=== PATIENT | male | born 1955 | race Caucasian/White ===

== ENCOUNTER 2017-01-31 16:19 | Emergency (ER) | payer BC ==
[~2017-01-31 16:19] MED LIST: FLOMAX4 PO; GLUCPH PO; MULTIPLE VIT PO; Z100 PO; Z300 PO; ZESTORETIC1 TAB PO
[2017-02-01] MEDS ORDERED: LIDODERM TOP (20:55)
[2017-02-01] MEDS ORDERED: MOBIC7.5 PO (20:55)
[2017-02-01] MEDS ORDERED: GLUCOPHXR PO (20:57)
[2017-02-01] MEDS ORDERED: NORCO1 TA1 PO (20:57)
[2017-02-01] MEDS ORDERED: FLEX PO (20:58)
[2017-02-01] MEDS ORDERED: HALF81 PO (20:59)
[2017-02-01] MEDS ORDERED: Z300 PO (20:59)
[2017-02-01] MEDS ORDERED: PRIN20 PO (21:00)
[2017-02-01] MEDS ORDERED: LIPITOR (21:02)
== END 2017-01-31 18:15 | disposition home or self-care (01) ==
LOC: ER 16:19
DX: M54.41 Lumbago with sciatica, right side (principal); I10 Essential (primary) hypertension; E11.9 Type 2 diabetes mellitus without complications; Z79.899 Other long term (current) drug therapy
CPT/HCPCS: 82962; 96372; 99283; J1170; J1885; J2405

== ENCOUNTER 2017-02-01 20:50 | Inpatient (IN) | payer BC ==
--- NOTE | ~2017-02-01 | HP ---
History And Physical [place] [address] [place]. [address] NAME: DAREN COX : 59 STATUS : ADM IN [facility]#: [id number] AGE: 61 ADM/REG DATE : 02/02/17 MR#: [id number] REPORT SERV DATE: 02/02/17 DICTATED BY: BRANDI LEY DATE: 02/02/17 REPORT STATUS : Draft TRANSCRIBED BY: MODL DATE: 02/02/17 DATE OF ADMISSION: 02/02/2017 CHIEF COMPLAINT: A 61-year-old male presenting with high fevers and back pain. HISTORY OF PRESENT ILLNESS: The patient's history was obtained through careful interview with the patient and coupled with review of [facility]. The patient states that over the last month he has had intermittent back pain, myalgias. He believes that about a month ago he started taking a statin and he thought this might be the cause of his pain, so he discontinued this medication, but it has really not helped his condition at all. But on the morning of 01/30/2017 the back pain became particularly severe and increasingly debilitated. He has had to stay out of work because of this. He describes mostly right hip and right lower back pain that does radiate towards the mid line, it radiates down his buttocks to the back of his leg into his feet, sometimes it causes swelled up locked up feeling in his ankles and knees and a stiffness. He describes the pain as getting up to 25/10. On the night leading up to this admission, he developed severe fevers and chills up to 104.9, became diaphoretic and "hot" to the touch. No rashes. No diarrhea. He has had nausea, but no vomiting. No lightheadedness. He noticed throughout the evening that he had very poor urine output. When he came here, he had a Perez catheter placed that showed a postvoid residual of only a 100. There has been no confusion, no headaches. He had noticed about three tick bites over the last few weeks, but none of them caused significant rash. REVIEW OF SYSTEMS: Otherwise, a 14-point review of systems was obtained and was negative. PAST MEDICAL HISTORY: 1. Diabetes. 2. Prostate cancer status post surgical resection. 3. Obstructive sleep apnea. 4. Nephrolithiasis seen by Dr. Gordon. 5. Hepatitis B ? 6. Gout. 7. Negative cardiac stress test about a month ago. PAST SURGICAL HISTORY: History And Physical [address] [place]. [address] NAME: DAREN COX : 59 STATUS : ADM IN [facility]#: [id number] AGE: 61 ADM/REG DATE : 02/02/17 MR#: [id number] REPORT SERV DATE: 02/02/17 DICTATED BY: BRANDI LEY DATE: 02/02/17 REPORT STATUS : Draft TRANSCRIBED BY: PING DATE: 02/02/17 1. Radical prostatectomy. 2. Adhesiolysis. 3. Ventral hernia repair. ALLERGIES: NO KNOWN DRUG ALLERGIES. SOCIAL HISTORY: He is . Has one son. Raising his granddaughter with cerebral palsy. Works in [employer] with [employer]. No tobacco abuse. No alcohol abuse. FAMILY HISTORY: Father with CABG. CURRENT MEDICATIONS: 1. Allopurinol 300 mg p.o. daily. 2. Aspirin 81 mg p.o. daily. 3. Flexeril 10 mg every 8 hours. 4. Hydrocodone p.r.n. 5. Lidoderm patch. 6. Lisinopril 20 mg p.o. daily. 7. Mobic 7.5 mg p.o. daily. 8. Metformin Extended Release 500 mg p.o. daily. 9. Lipitor. PHYSICAL EXAMINATION: VITAL SIGNS: Temperature 104.9, pulse 106, blood pressure initially 81/50, but after initial fluid bolus the patient had consistent mean arterial pressure greater than 70 while in the emergency department, although many times the systolic blood pressure was noted in the 90s, respiratory rate 18, and O2 saturation 95% on room air. GENERAL: A pleasant, cooperative male. He appears fatigued, but not toxic and in no acute distress. HEENT: Pupils equal, round, and reactive to light. No conjunctival pallor. No scleral icterus. Nares are patent. Oropharynx is clear of obstruction. Very dry mucous membranes. NECK: Trachea midline. No thyromegaly. LYMPH: No cervical lymphadenopathy. No supraclavicular lymphadenopathy. No inguinal lymphadenopathy. RESPIRATORY: Clear to auscultation at bases. No wheezes, rales, or rhonchi. Normal respiratory effort. CARDIOVASCULAR: Tachycardic. Regular rhythm. No murmurs, rubs, or gallops. No current extremity edema is appreciated. ABDOMEN: No anterior abdominal discomfort at all. Nondistended. Active bowel sounds. No hepatosplenomegaly. DERMATOLOGICAL: Diaphoretic warm extremities. No pallor. No cyanosis. PSYCHIATRIC: Normal affect. Good mood. Alert and oriented x3. LABORATORY DATA: Procalcitonin 6.74. Influenza negative. Lactic acid 3.3. Total bilirubin 1.9. White blood cell count 18.1, hemoglobin 15, hematocrit 43, and platelets 218. History And Physical [address] [address] NAME: DAREN COX : 59 STATUS : ADM IN [facility]#: [id number] AGE: 61 ADM/REG DATE : 02/02/17 MR#: [id number] REPORT SERV DATE: 02/02/17 DICTATED BY: BRANDI LEY DATE: 02/02/17 REPORT STATUS : Draft TRANSCRIBED BY: MODL DATE: 02/02/17 Sodium 137, potassium 4.1, chloride 97, bicarb 29, BUN 42, creatinine 2.10 from baseline creatinine of 1.0, and glucose 148. Urinalysis shows 46 red blood cells, 7 hyaline casts. STUDIES: 1. Chest x-ray by my own evaluation shows cardiomegaly, granulomatous disease, but nothing acute. 2. CT scan of the abdomen and pelvis shows no lower lung disease, benign-appearing nephrolithiasis that is uncomplicated, but otherwise no acute abnormality. ASSESSMENT AND PLAN: 1. Severe sepsis of unclear cause with shock (resolved with fluid boluses). Lactic acid of 3.3. White blood cell count of 18.1. Tachycardia. Fever of 104.9. Acute kidney injury. Check blood cultures. Place on appropriate IV antibiotics including broad spectrum antibiotics of IV cefepime and IV vancomycin for now. Negative chest x-ray. Negative CT scan of the abdomen and pelvis. Negative urinalysis. Check an MRI of the spine. Check an echocardiogram. Obtain Infectious Disease consult with Dr. Dhaval Ornelas. Also we will add p.o. doxycycline because the patient has had three recent tick bites. 2. Severe 25/10 back pain. Check an MRI of the brain. 3. Acute kidney injury. Place on IV fluids. 4. Diabetes. Check hemoglobin A1c. Place on sliding scale insulin. KPL/MODL Brandi Ley M.D. / [id number] CC: Jonathan Mejia M.D. Mark Thel, M.D.
--- NOTE | ~2017-02-01 | OP ---
Record Of Operation [facility] [address] [place]. [address] NAME: DAREN COX : 59 STATUS : ADM IN PAT#: [id number] AGE: 62 ADM/REG DATE : 02/02/17 MR#: [id number] REPORT SERV DATE: 02/12/17 DICTATED BY: TOÑO PEREIRA II DATE: 02/12/17 REPORT STATUS : Draft TRANSCRIBED BY: PING DATE: 02/12/17 DATE OF PROCEDURE: 02/10/2017 PREOPERATIVE DIAGNOSES: Epidural spinal abscess, spontaneous, status post laminectomy, and irrigation and debridement. POSTOPERATIVE DIAGNOSES: Epidural spinal abscess, spontaneous, status post laminectomy, and irrigation and debridement. PROCEDURE: Repeat irrigation and debridement of epidural spinal abscess, L3-S1. SURGEON: Toño Pereira M.D. FLUIDS: 1 L lactated Ringer's. ESTIMATED BLOOD LOSS: 30 mL. DRAINS: One drain. COMPLICATIONS: None. ANTIBIOTIC: Preoperatively. PREOPERATIVE HISTORY: This is a very friendly 62-year-old gentleman, who is brought back for repeat irrigation and debridement secondary to the copious amount of purulence in the canal and the soft tissues at the index. DESCRIPTION OF PROCEDURE: After informed consent was obtained, the patient was brought to the operating room at his request, and general anesthesia was achieved. He was placed in the prone position. The back was prepped and draped in the sterile fashion. This was done after the Vac-Pac was removed. At this point, we then performed repeat inspection of the area. There was no obvious purulence in the soft tissues, subfascial region. There was also no obvious evidence of copious purulence in the canal as had been identified previously. The area was now irrigated with bulb irrigation in the canal region as well as the deep tissues. We then performed more superficial irrigation with the Simpulse lavage. At this point, a ERIKA drain was placed. Please note, overall the dura appeared less inflammatory than it did at the previous index procedure. The standard closure was performed, and the patient was extubated and transferred to the PACU in stable condition. JULITA/PING Toño Pereira II, M.D. Record Of Operation [place] [id number] [place]. [address] NAME: DAREN COX : 59 STATUS : ADM IN PAT#: [id number] AGE: 62 ADM/REG DATE : 02/02/17 MR#: [id number] REPORT SERV DATE: 02/12/17 DICTATED BY: TOÑO PEREIRA II DATE: 02/12/17 REPORT STATUS : Draft TRANSCRIBED BY: MODL DATE: 02/12/17 / [id number] CC: Jonathan Du M.D.
--- NOTE | ~2017-02-01 | TEE ---
Transesophageal Echocardiogram [place] [id number] [facility] [place]. [address] NAME: DAREN COX : 59 STATUS : ADM IN [facility]#: [id number] AGE: 62 ADM/REG DATE : 02/02/17 MR#: [id number] REPORT SERV DATE: 02/12/17 DICTATED BY: PALMER CALLAWAY DATE: 02/12/17 REPORT STATUS : Draft TRANSCRIBED BY: MODL DATE: 02/12/17 INDICATION: Bacteremia with MSSA. Informed consent was obtained, signed, and on chart prior to proceeding. A time-out was performed. Sedation was per Anesthesia, and esophageal intubation was without difficulty. TECH: TD. The overall quality of the study was good. FINDINGS: VALVES: 1. The aortic valve morphology is trileaflet with adequate mobility. There were no valvular vegetations seen. There was no aortic regurgitation. 2. The mitral valve morphology was normal with fully mobile leaflets. Redundant chordae tendineae were noted. There were no valvular vegetations. There was mild mitral regurgitation. 3. The pulmonic valve morphology was grossly normal. There were no valvular vegetations seen. There was no pulmonic regurgitation. 4. The tricuspid valve morphology is normal with fully mobile leaflets. There were no valvular vegetations seen. There was mild tricuspid regurgitation. CHAMBERS: 1. The left atrium was grossly normal in size with no mass or thrombus seen. 2. The left ventricle is normal in size with visually estimated LVEF of 55%. There were no regional wall motion abnormalities. 3. The right atrium was normal in size. Superior and inferior vena cava appeared normal. There was no mass or thrombus seen. 4. The right ventricle was normal in size and systolic function. OTHER: The interatrial septum appeared intact by visual inspection with no evidence of interatrial shunt seen by color Doppler. There was no pericardial effusion. There was a scant pleural fluid. The descending thoracic aorta was normal in caliber with no significant atherosclerosis or aneurysmal dilatation. COMPLICATIONS: None. CONCLUSION: 1. NO VALVULAR VEGETATIONS OR EVIDENCE OF ENDOCARDITIS SEEN. 2. MILD MITRAL AND TRICUSPID REGURGITATION. 3. NORMAL LV SIZE WITH PRESERVED EF, 55%. AEA/MODL Palmer Callaway M.D. Transesophageal Echocardiogram [address] [place]. [address] NAME: DAREN COX : 59 STATUS : ADM IN [facility]#: [id number] AGE: 62 ADM/REG DATE : 02/02/17 MR#: [id number] REPORT SERV DATE: 02/12/17 DICTATED BY: PALMER CALLAWAY. DATE: 02/12/17 REPORT STATUS : Draft TRANSCRIBED BY: MODL DATE: 02/12/17 / [id number] CC: Jonathan Du M.D.
--- NOTE | ~2017-02-01 | CN ---
Consultation Report [facility] [address] [place]. [address] NAME: DAREN SMITH : 59 STATUS : ADM IN PAT#: [id number] AGE: 62 ADM/REG DATE : 02/02/17 MR#: [id number] REPORT SERV DATE: 02/06/17 DICTATED BY: JDA GARLAND DATE: 02/06/17 REPORT STATUS : Draft TRANSCRIBED BY: MODL DATE: 02/06/17 CARDIOLOGY CONSULTATION DATE OF CONSULTATION: 02/06/2017 REASON FOR CONSULTATION: Elevated cardiac biomarkers and abnormal 12-lead EKG in a 62-year- old man with known coronary heart disease by CT calcium score with a recent evaluation by Dr. Multani. The patient is preop for debridement of an epidural abscess. HISTORY OF PRESENT ILLNESS: Mr. Smith is a 62-year-old man with a history of coronary artery disease, diagnosed by CT calcium score. The patient has a high risk CT calcium score of approximately 2400. He was referred to Dr. Jayant Multani for workup of this finding. The patient had a recent Connor exercise tolerance test with myocardial perfusion imaging. This was performed on 12/21/2016. The patient had a low risk result, achieving 7 METS and 89% of his age predicted maximum heart rate on the treadmill stress test. There was no EKG evidence of myocardial ischemia at that time. The patient had a perfusion study which demonstrated no ischemia, with a post exercise ejection fraction of 49%. The patient was in his usual state of health until about a week ago. He has developed fevers, associated with diaphoresis and progressive fatigue. The patient also developed back pain recently. He was found to have sepsis on admission, with acute renal failure, and an elevated serum lactate. The patient was also found to have MSSA bacteremia. He is being treated with antibiotics. The patient's condition has improved, though a MRI scan has demonstrated an epidural abscess and the patient is now preop for debridement of this. The patient denies any chest pain at this time. Aside from the aforementioned symptoms of fever, chills, generalized fatigue, and back pain, he denies chest pain, orthopnea or paroxysmal nocturnal dyspnea. The patient has no previous history of cardiac surgery. PAST MEDICAL HISTORY: 1. Type 2 diabetes. 2. Obstructive sleep apnea. 3. Hypertension. 4. Coronary artery disease with recent low risk stress test as noted above. 5. Dyslipidemia. PAST SURGICAL HISTORY: 1. Radical prostatectomy. 2. Adhesiolysis. 3. Ventral hernia repair. FAMILY HISTORY: The patient apparently has a strong positive family history of coronary heart disease. His father underwent coronary artery bypass grafting surgery. There is no known history of sudden cardiac however. Consultation Report [place] [id number] [place]. [address] NAME: DAREN SMITH : 59 STATUS : ADM IN PAT#: [id number] AGE: 62 ADM/REG DATE : 02/02/17 MR#: [id number] REPORT SERV DATE: 02/06/17 DICTATED BY: JAD GARLAND DATE: 02/06/17 REPORT STATUS : Draft TRANSCRIBED BY: PING DATE: 02/06/17 SOCIAL HISTORY: The patient has never smoked cigarettes. He drinks whisky rarely. He has no known history of recreational drug use. ALLERGIES: THE PATIENT HAS NO KNOWN MEDICATION ALLERGIES. HOME MEDICATIONS: 1. Allopurinol 300 mg p.o. daily. 2. Aspirin 81 mg p.o. daily. 3. Cyclobenzaprine 10 mg p.o. q.8 hours. 4. Hydrocodone/acetaminophen 5/325 mg one tablet q.6 hours as needed for pain. 5. Topical lidocaine 5% one patch daily. 6. Lisinopril 20 mg p.o. daily. 7. Mobic 7.5 mg p.o. daily. 8. Metformin XR 500 mg p.o. daily. 9. Atorvastatin - dose unknown. The patient recently stopped this because he thought it may have been contributing to his diffuse myalgias and back pain. PHYSICAL EXAMINATION: VITAL SIGNS: Current temperature is 98.4, T-max over the last 24 hours is 102.4 degrees Fahrenheit, blood pressure is 140/67 mmHg, respirations 18, heart rate is 84 beats per minute and regular, oxygen saturation is 95% on a 2 L nasal cannula. CONSTITUTIONAL: The patient is an ill-appearing obese white man, who is currently in no acute distress and is able to speak in full sentences. The patient has an NG tube in place. EYES: PERRL, EOMI, clear conjunctiva. HEAD/MNT: NCAT with moist mucous membranes and grossly normal hard and soft palate. NECK: Supple with no obvious thyromegaly or lymphadenopathy CARDIOVASCULAR: There is a regular rhythm with a normal S1 and a physiologically split second heart sound. No significant murmurs, rubs, or gallops are noted. The jugular venous pressure appears at the upper limit of normal at 8 cm. PULMONARY: Clear to auscultation bilaterally with no wheezing, rales, rhonchi, or dullness to percussion. ABDOMINAL: Soft, non-tender, non-distended with no hepatosplenomegaly noted. EXTREMITIES: There is 2+ pedal edema bilaterally with no clubbing or cyanosis noted. No Osler's nodes or Janeway lesions are noted. MUSCULOSKELETAL: Grossly normal strength and range of motion in all extremities INTEGUMENTARY: Skin appears intact with no bruises, wounds or active lesions noted NEURO/PSYC: Alert and oriented x3, with no dysarthria, facial droop or lateralizing weakness noted. 12-LEAD EKG: The 12-lead EKG shows normal sinus rhythm with symmetric T-wave inversion in lead V1 through V4 suggestive of anterior ischemia and inferior OK of indeterminate age cannot be excluded. In comparison to previous tracing dated 12/12/2016, the T-wave inversions are newly described, though inferior Q-waves are present on the patient's previous tracing. Consultation Report [address] [place]. [address] NAME: DAREN SMITH : 59 STATUS : ADM IN [facility]#: [id number] AGE: 62 ADM/REG DATE : 02/02/17 MR#: [id number] REPORT SERV DATE: 02/06/17 DICTATED BY: JAD GARLAND DATE: 02/06/17 REPORT STATUS : Draft TRANSCRIBED BY: MODRenny DATE: 02/06/17 LABORATORY DATA: The patient's peak troponin was approximately 0.8 on admission, and has trended down to 0.2. The patient was admitted with a leukocytosis of 18,000, which is increased to 20,000. Hemoglobin is 12, hematocrit 36, platelets 255. INR is 1.4. Metabolic profile shows a sodium of 144, potassium 3.9, chloride is 107, CO2 of 30, BUN is 25, creatinine is 1.05, glucose is 131, albumin is decreased at 1.9. Again, the patient's most recent troponin is 0.19. The patient's procalcitonin was found to be elevated. Blood cultures x2 were positive for MSSA. CHEST X-RAY: This shows mild pulmonary vascular congestion, with no other acute cardiopulmonary process. ASSESSMENT AND PLAN: 1. Vop-XO-jqeeagt elevation myocardial infarction: This most likely represents demand ischemia, though the patient's 12-lead EKG is very concerning for LAD territory ischemia. Unfortunately, the patient is not a candidate for an urgent invasive cardiac workup due to sepsis as well as the patient's epidural abscess. Should the patient require percutaneous coronary intervention, this would be relatively contraindicated in the presence of bacteremia and also the patient would then require dual anti-platelet therapy, which would likely complicate the patient's debridement. Fortunately, the patient has had a recent low risk stress test. I feel the patient is at least at moderate cardiovascular risk for surgery. However, this is not an elective surgery, rather an urgent surgery and I feel the patient should proceed to surgery without further cardiac workup at this time. Eventually, the patient will require coronary angiography given his hry-BY-kredmvx elevation myocardial infarction and concerning EKG changes. We would recommend that the patient be started on aspirin and atorvastatin as soon as this is felt to be acceptable from the perspective of the Orthopedic Surgery or Neurosurgery Service. 2. Elevated troponin: Again, this is most likely a demand ischemia, though the patient's ECG is concerning for LAD territory ischemia. Following resolution of the patient's infectious issues, we will consider coronary angiography. We would recommend aspirin and consider a heparin drip postop whenever this is felt to be safe. 3. Evaluation for endocarditis: The patient's epidural abscess may be evidence of an embolic event. He has sepsis/bacteremia with an organism known to cause endocarditis. We would recommend transesophageal echocardiography to evaluate for vegetations once the patient is otherwise stable. Thank you for allowing me to participate in the care Mr. Smith. The Cardiology Service will continue to follow the patient closely during this hospitalization. PAULINA/PING Jad Garland MD Consultation Report [address] [place]. [address] NAME: DAREN SMITH : 59 STATUS : ADM IN PAT#: [id number] AGE: 62 ADM/REG DATE : 02/02/17 MR#: [id number] REPORT SERV DATE: 02/06/17 DICTATED BY: JAD GARLAND DATE: 02/06/17 REPORT STATUS : Draft TRANSCRIBED BY: PING DATE: 02/06/17 / [id number] CC: Jonathan Du M.D.
--- NOTE | ~2017-02-01 | CN ---
Consultation Report [facility] [address] [place]. [address] NAME: DAREN SMITH : 59 STATUS : ADM IN PAT#: [id number] AGE: 62 ADM/REG DATE : 02/02/17 MR#: [id number] REPORT SERV DATE: 02/07/17 DICTATED BY: RAIFQ MORALES DATE: 02/07/17 REPORT STATUS : Draft TRANSCRIBED BY: MODL DATE: 02/07/17 DATE OF CONSULTATION: 02/07/2017 REASON FOR CONSULTATION: Evaluation and management of colonic ileus. HISTORY OF PRESENT ILLNESS: Mr. Smith is a 62-year-old male patient who came in on 02/02/2017, previously seen by Dr. Zackary Phelan in the outpatient setting in 2004. He was admitted secondary to his complaints of fevers and back pain. Ultimately, he was found to have an epidural abscess and he was taken to the OR today with Dr. Pereira who had I and D of that abscess with laminectomy with VAC placement. It appears by review of notes that repeat is planned for Sunday, potentially this week. On 02/01/2017, he had a CT scan of the abdomen and pelvis, which was negative; however, on the 02/03/2017, he had developed some distention in his abdomen. KUB showed small bowel and colonic ileus. NG tube was placed. Currently, his small bowel has improved, however, he had an abdominal x-ray today, which still showed a dilated colon. Discussion with Dr. Ramírez, radiologist, his distal transverse colon measures around 7.5 cm, his right colon 10 cm, and his descending colon 7.5 cm. He did have a Gastrografin enema done yesterday and that exam showed short segment narrowing in the sigmoid colon, which does not ever fully distend with contrast during filling or evacuation. Short segment stricture not excluded, but no mass lesion was seen at this time. He is having bowel movements. His abdomen is distended and tympanic. He denies pain. He is not nauseous. He is recently back from his surgical intervention with Dr. Pereira. He is presently in MICU bed 7. I had a long discussion with the patient as well as the patient's family who is currently present at the bedside regarding management of his colonic distention. Hopefully, this can be managed with medications and rectal decompression. If it cannot be and his colon continues to become more dilated, he would likely need intervention with 1, neostigmine, or 2, colonic decompression. I did discuss all this with him the risks, benefits, alternatives, and complications. PAST MEDICAL HISTORY: Positive for type 2 diabetes, obstructive sleep apnea, hypertension, coronary artery disease, dyslipidemia, nephrolithiasis, obstructive sleep apnea, gout, prostate cancer, status post surgical resection. SURGICAL HISTORY: Prostatectomy, adhesiolysis, and ventral hernia repair. SOCIAL HISTORY: . Denies alcohol, tobacco, or illicits. FAMILY HISTORY: Noncontributory from a GI standpoint. ALLERGIES: NOTHING. HOME MEDICATIONS: Allopurinol, aspirin, Flexeril, [place], Lidoderm, Proventil, Mobic, Glucophage, and Lipitor. REVIEW OF SYSTEMS: A 10-point review of systems is obtained, pertinent positives addressed in the history of Consultation Report [address] [address] NAME: DAREN SMITH : 59 STATUS : ADM IN [facility]#: [id number] AGE: 62 ADM/REG DATE : 02/02/17 MR#: [id number] REPORT SERV DATE: 02/07/17 DICTATED BY: RAFIQ MORALES DATE: 02/07/17 REPORT STATUS : Draft TRANSCRIBED BY: PING DATE: 02/07/17 present illness. PHYSICAL EXAMINATION: VITAL SIGNS: Temperature is 98.6, pulse 77, respirations 18, blood pressure 155/77. NEURO: Reveals an alert male, resting in bed with no focal deficits. GENERAL: Cooperative, in no acute distress. Awake, alert, and oriented x3. HEAD, EARS, EYES, NOSE, AND THROAT: Anicteric. Pupils are equal, round, and reactive to light and accommodation. Normocephalic and atraumatic. NECK: No JVD. No palpable nodes. Supple. LUNGS: Decreased throughout with normal respiratory effort exhibited. CARDIOVASCULAR: Regular rate and rhythm. ABDOMEN: Distended and tympanic, essentially nontender. No rebound or guarding elicited on exam. EXTREMITIES: No edema. Normal distal pulses. Noted Vac-Pac to his back. PERTINENT LABORATORY DATA: Sodium 145, potassium 3.6, BUN is 24, creatinine is 0.98. White count 18.6, hemoglobin 11.8, hematocrit 34.7, platelet count 252, INR 1.4. ASSESSMENT: 1. Colonic ileus, question Martha's. 2. Methicillin-resistant Staphylococcus aureus sepsis. 3. Epidural abscess status post I and D with laminectomy and VAC placement. 4. Elevated troponin, questionable CRYSTAL at some point per Cardiology. PLAN: 1. We will give Relistor. 2. Give Dulcolax suppositories now, then insert rectal tube. 3. Morning KUB with measurements of colonic distention. 4. Questionable colonic decompression versus neostigmine at some point. Hopefully, this will resolve status post treatment of his infection process. We will follow. ERROL/PING Rafiq ZAID Soares / [id number] CC: Kathy London M.D.
--- NOTE | ~2017-02-01 | IDS ---
Interim Discharge Summary [facility] [address] [place]. [address] NAME: DAREN COX : 59 STATUS : ADM IN [facility]#: [id number] AGE: 62 ADM/REG DATE : 02/02/17 MR#: [id number] REPORT SERV DATE: 02/09/17 DICTATED BY: DAVE VELASQUEZ DATE: 02/09/17 REPORT STATUS : Draft TRANSCRIBED BY: MODL DATE: 02/09/17 ADMISSION DATE: 02/02/2017 DISCHARGE DATE: DATE OF TRANSFER TO THE ICU: 02/07/2017. INTERIM DIAGNOSES: 1. Methicillin-sensitive Staphylococcus aureus sepsis. 2. Epidural abscess. 3. Colonic ileus. 4. Demand ischemia. 5. Acute renal failure. 6. Type 2 diabetes. 7. Hypertension. 8. Obstructive sleep apnea. ICU COURSE: Please see the dictated H and P and consult notes for full patient presentation and history. BRIEF SUMMARY: The patient is a 62-year-old gentleman with a past medical history of diabetes, obstructive sleep apnea, who initially was admitted to the hospital back on 02/02/2017 after presenting with back pain, and was found to have an epidural abscess with septic shock that responded to IV fluids, and did not require vasopressors as well as acute renal failure. The patient underwent an I and D by Dr. Pereira of his epidural abscess on 02/07/2017, and was transferred to the ICU postoperatively after being extubated, and was not on vasopressors at that time. The patient has been stable since transfer here to the ICU. He remains on antibiotics. They are being managed by Infectious Disease. He does need a transesophageal echocardiogram, given his epidural abscess and his MSSA bacteremia. This will be performed by Cardiology probably next week after the patient stabilizes, and after his next surgery. Regarding that, Dr. Pereira does plan on going back for a second exploration of his epidural abscess tomorrow 02/10/2017, because of that, I will keep him in ICU today as he will likely return to the ICU postoperatively tomorrow. Regarding his other problems, he also has a colonic ileus that is being followed and managed by GI. Currently, he is on azithromycin for that, and has an NG tube with decompression for that. He had a large bowel movement this morning and repeat KUB that is pending. Depending on the size of his ileus, they may get him neostigmine. This is yet to be determined. His acute renal failure, that he had on admission has resolved. He is making good urine. We will continue to monitor this. He is also sleeping with BiPAP at night for his sleep apnea, and his hypertension and diabetes remained controlled. The patient will remain in the ICU today, the oncoming investment analyst will assume care of the patient. Please call if you have any questions. BENOIT/PING Interim Discharge Summary [place] [address] [place]. [address] NAME: DAREN COX : 59 STATUS : ADM IN [facility]#: [id number] AGE: 62 ADM/REG DATE : 02/02/17 MR#: [id number] REPORT SERV DATE: 02/09/17 DICTATED BY: DAVE VELASQUEZ DATE: 02/09/17 REPORT STATUS : Draft TRANSCRIBED BY: PING DATE: 02/09/17 Dave Velasquez MD / [id number] CC: Jonathan Du M.D.
--- NOTE | ~2017-02-01 | IDS ---
Interim Discharge Summary [facility] [address] [place]. [address] NAME: DAREN COX : 59 STATUS : ADM IN [facility]#: [id number] AGE: 62 ADM/REG DATE : 02/02/17 MR#: [id number] REPORT SERV DATE: 02/13/17 DICTATED BY: SHANEKA TANNER IV DATE: 02/13/17 REPORT STATUS : Draft TRANSCRIBED BY: MODL DATE: 02/13/17 ADMISSION DATE: 02/02/2017 DISCHARGE DATE: Date of transfer to the ICU is 02/07/2017, date of transfer to the floor 02/13/2017. Please see the interim discharge summary by Dr. Velasquez dated 02/09. This is an interim discharge summary to complete the time up until the 02/13. REASON FOR TRANSFER: 1. Emesis, MSSA sepsis. 2. Epidural abscess, status post debridement and drainage. 3. Agustin's syndrome, improved. 4. Acute kidney injury, resolved. 5. Diabetes mellitus, on therapy. 6. Hypertension. 7. Obstructive sleep apnea, noncompliant with CPAP therapy. 8. Metabolic alkalosis. 9. Electrolyte abnormalities being corrected. CONSULTANTS: 1. Dr. ePreira, Orthopedics Back continues to follow the patient. 2. Cardiology saw the patient for CRYSTAL. 3. Gastroenterology who signed off but will be asked to come back concerning the [place]'s. 4. Infectious Disease who continues to follow the patient. PROCEDURES: The patient underwent a lumbar laminectomy L3-4, L4-5, and L5-S1 with irrigation and debridement and placement of a Vac Pac and debridement of a large subfascial soft tissue abscess. The patient returned on the 02/10 for further evaluation with no significant debridement required. The patient underwent CRYSTAL on the 02/12 demonstrating mild TR and MR with no vegetations and normal ejection fraction of 55%. CURRENT MEDICATIONS: The patient is on Ancef 2 g q.8 hours, Colace 100 mg twice a day, Flexeril 10 mg q.8 hours, aspirin 81 mg daily, azithromycin 500 mg daily, Lidoderm patch daily, Lyrica 75 mg twice a day, MS Contin 15 mg twice a day, level 1 insulin sliding scale, Prinivil 20 mg daily, Protonix 40 mg oral daily, Reglan 10 mg q.6 hours, Relistor 12 mg subcu daily, and Zyloprim 300 mg daily. The patient is on a level 1 insulin sliding scale. HOSPITAL COURSE: The patient went back to the OR on the 02/10 for re-evaluation of the wound with no major procedures performed. The patient continued to have a drain in position and is being followed by Back Ortho. The patient underwent CRYSTAL to evaluate for vegetations on the 02/12, which failed to demonstrate any vegetations. He had a large bowel movement on the 02/10; however, continues to have some abdominal distention with a KUB today demonstrating increase in the size of the colon, for which we have asked GI to re-evaluate. He had some mild metabolic alkalosis, which was treated with Diamox. His magnesium was Interim Discharge Summary [address] [place]. [address] NAME: DAREN COX : 59 STATUS : ADM IN [facility]#: [id number] AGE: 62 ADM/REG DATE : 02/02/17 MR#: [id number] REPORT SERV DATE: 02/13/17 DICTATED BY: SHANEKA TANNER IV DATE: 02/13/17 REPORT STATUS : Draft TRANSCRIBED BY: PING DATE: 02/13/17 replaced. He remains on pneumatic compression stockings. It was felt that he no longer required care in the intensive care unit and will be transferred back to the floor. Central line was pulled and cultured. He does have IV for medications. Hospital service will be asked to resume primary responsibility. PAUL/PING Shaneka Tanner IV, M.D. / [id number] CC: Jonathan Du M.D.
--- NOTE | ~2017-02-01 | OP ---
Record Of Operation [facility] [address] [place]. [address] NAME: DAREN COX : 59 STATUS : ADM [facility]#: [id number] AGE: 62 ADM/REG DATE : 02/02/17 MR#: [id number] REPORT SERV DATE: 02/08/17 DICTATED BY: TOÑO PEREIRA II DATE: 02/08/17 REPORT STATUS : Draft TRANSCRIBED BY: MODL DATE: 02/08/17 DATE OF PROCEDURE: 02/07/2017 PREOPERATIVE DIAGNOSES: 1. Multilevel lumbar epidural spinal abscess. 2. Sepsis. 3. Degenerative spondylolisthesis, mild L4-5. POSTOPERATIVE DIAGNOSES: 1. Multilevel lumbar epidural spinal abscess. 2. Sepsis. 3. Degenerative spondylolisthesis, mild L4-5. 4. Destruction of L4-5 and L5-S1 facets, partial. PROCEDURES: 1. Lumbar laminectomy, L3-4, L4-5, and L5-S1. 2. Irrigation and debridement of epidural spinal abscess. 3. Use of the microscope and stereotactic spinal imaging. 4. Placement of Vac-Pac. 5. Irrigation and debridement of subfascial large soft tissue abscess. SURGEON: Toño Pereira M.D. FLUIDS: One liter lactated Ringer's. ESTIMATED BLOOD LOSS: 50 mL. CULTURES: Taken. ANTIBIOTICS: Given preoperatively. PREOPERATIVE HISTORY: This is a very friendly 62-year-old gentleman who has been severely septic in the last several days. He is much more stable now. Initial MRI did not show any evidence of an epidural spinal abscess. Subsequent MRI did show an epidural spinal abscess. DETAILS OF THE PROCEDURE: The patient was brought to the operating room at his request and general anesthesia achieved. He was placed in a prone position and the back was prepped and draped in a sterile fashion. The midline incision was made following stereotactic navigational system setup. The intraoperative CT scan helped delineate the appropriate levels. The dissection was then performed. During the dissection on the right just below the fascia at L5-S1, we encountered a very large subfascial muscular abscess. This was cultured and the area irrigated. The soft tissue dissection was completed followed by then the laminectomy at L5-S1. Interestingly, on the left side, in particular, there was significant destruction and loosening of the facet at L5-S1 and L4-5. He also has a degenerative spondylolisthesis at Record Of Operation [facility] [address] [place]. [address] NAME: DAREN COX : 59 STATUS : ADM IN PAT#: [id number] AGE: 62 ADM/REG DATE : 02/02/17 MR#: [id number] REPORT SERV DATE: 02/08/17 DICTATED BY: TOÑO PEREIRA II DATE: 02/08/17 REPORT STATUS : Draft TRANSCRIBED BY: PING DATE: 02/08/17 L4-5. At this point, the canal was then inserted at L5-S1 and a copious amount of purulence noted. This seemed to be circumferential. The area was fully irrigated. Then, we worked up at the L4-5 level whereupon the laminectomy was performed and partial facetectomy. The stenosis was severe at this level and was now alleviated. Once again, we identified copious circumferential purulence. Next, we worked up at the L3-4 level, where once again, purulence was noted in the canal. The dura overall appeared extremely erythematous and inflamed at each level. At this point, we then placed a pediatric feeding tube along the epidural space up to L1 and irrigation was performed. At this point, I was pleased with the irrigation and the decompression. Because of the copious purulence, I felt a Vac-Pac was appropriate with a plan to bring back several days later. At this point, the Vac-Pac was placed followed by transfer and extubation. JULITA/PING Toño Pereira II, M.D. / [id number] CC: Jonathan Du M.D.
--- NOTE | ~2017-02-01 | CN ---
Consultation Report [facility] [address] [place]. [address] NAME: DAREN COX : 59 STATUS : ADM IN PAT#: [id number] AGE: 61 ADM/REG DATE : 02/02/17 MR#: [id number] REPORT SERV DATE: 02/03/17 DICTATED BY: DHAVAL PRASAD DATE: 02/02/17 REPORT STATUS : Draft TRANSCRIBED BY: MODL DATE: 02/02/17 INFECTIOUS DISEASE CONSULT DATE OF CONSULTATION: REFERRING PHYSICIAN: Dr. Nichole. REASON FOR CONSULT: Sepsis, high fever. HISTORY OF PRESENT ILLNESS: A 61 years old white male with history of prostatectomy for prostate cancer five years ago, diabetes, sleep apnea, gout, kidney stones, hepatitis B, and remote ventral hernia repair with mesh, who was admitted for high fever and severe right buttock pain. About five or six days ago, he started noticing some pain in the right buttock that progressively got worse. Initially, he felt it when driving then could not walk. He tried some local spray called [facility]. Eventually, he went to the ER at [facility] where he was given a steroid shot and a nausea shot. The pain progressed. It was going from the right buttock to the right leg. He went back to the emergency room at [facility] on 01/31/2017. He was given a muscle relaxant and a lidocaine patch. I noticed his blood pressure was low at that time, but the patient states no testing were done. Yesterday, he started running a high fever and chills, not responding to Aleve. He had some nausea. He was told by Dr. Corea's nurse to go to Urgent Care to check his urine. There, he could not void. He drank a lot a water, so he was sent to the emergency room at [facility]. Here, his blood pressure was low. Perez catheter was inserted. He had a fever. Lab work showed a procalcitonin of 6, lactic acid of 2.3, and bilirubin of 1.9. WBC of 18 and creatinine of 2.1. He was admitted, had extensive evaluation. Chest x-ray showed no infiltrates. CT of the abdomen and pelvis without contrast showed nonobstructive kidney stones. Today, admission blood cultures came positive for MSSA. He has been given vancomycin, doxycycline, and cefepime. The doxycycline is because he complained of finding some ticks on him recently. He also had a cardiac workup in December with a stress test and echocardiogram. He had some small wounds on the right posterior thigh and the right occipital area that were not healing that he might have picked on. No recent dental work. He has been tired, but no shortness of breath. He has constipation. No other joint pains beside maybe the right buttock and right ankle. Little nausea, no vomiting. PAST MEDICAL HISTORY: As I mentioned above, he does not really know the status of his hepatitis B. He states he was treated in the past, but not recently. 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 He is . He has a granddaughter with disability. Consultation Report [address] [place]. [address] NAME: DAREN COX : 59 STATUS : ADM IN [facility]#: [id number] AGE: 61 ADM/REG DATE : 02/02/17 MR#: [id number] REPORT SERV DATE: 02/03/17 DICTATED BY: DHAVAL PRASAD DATE: 02/02/17 REPORT STATUS : Draft TRANSCRIBED BY: PING DATE: 02/02/17 FAMILY HISTORY: Granddaughter with cerebral palsy and a history of heart disease. ALLERGIES: NONE. MEDICATIONS ON ADMISSION: 1. Allopurinol. 2. Aspirin. 3. Flexeril. 4. Lidocaine patch. 5. Lisinopril. 6. Mobic. 7. Metformin. 8. Lipitor, which he stopped when this pain started. PHYSICAL EXAMINATION: GENERAL: He is tired. Lips look a little bluish. Face red. Oral mucosa red and dry. LUNGS: Seem clear to auscultation. HEART: Regular rhythm without murmurs. ABDOMEN: Distended with decreased bowel sounds. SKIN: The place he mentioned of the right thigh has no open wound. He has some red spots on the left forearm. One white pustule on the right elbow area. He shaves his groins. Hands and feet without signs of emboli. SPINE: Nontender to palpation, but he is on morphine. INVESTIGATIONS: Procalcitonin 4.2, creatinine 1.6, bilirubin 1.6, troponin 0.7. WBC 12, hemoglobin 12. Urinalysis with cast and 1 white blood cell. ASSESSMENT AND PLAN: 1. Methicillin-sensitive Staphylococcus aureus bacteremia and sepsis. 2. Severe right buttock pain radiating to the right leg. 3. Acute renal insufficiency. 4. Elevated bilirubin. 5. Kidney stones. 6. History of gout and prostatectomy. Source of infection is unclear. He has had some small skin lesions that he picked on. Antibiotic lane, we will change to Ancef. Today, he had an MRI of the spine without contrast that showed some L4-L5 spondylolysis, small hydroceles. Chest x-ray shows mild congestive changes. Echocardiogram was of limited value, so no real information regarding endocarditis. With that, once his kidney function improves, he will need a transesophageal echocardiogram to rule out endocarditis, a CT of the pelvis with IV contrast and p.o. contrast to rule out iliopsoas or buttock abscess, and an MRI of the lumbar sacral spine with IV contrast to rule out diskitis and epidural Consultation Report [place] [place] [address] [place]. [address] NAME: DAREN COX : 59 STATUS : ADM IN [facility]#: [id number] AGE: 61 ADM/REG DATE : 02/02/17 MR#: [id number] REPORT SERV DATE: 02/03/17 DICTATED BY: DHAVAL PRASAD DATE: 02/02/17 REPORT STATUS : Draft TRANSCRIBED BY: PING DATE: 02/02/17 abscess. I discussed with the patient and . ZANE/PING Dhaval Prasad M.D. / [id number] CC: Jonathan Gilbert M.D.
--- NOTE | ~2017-02-01 | DS ---
Discharge Summary [facility] [address] [facility] [place]. [address] NAME: EDDIE COX : 59 STATUS : DIS IN PAT#: [id number] AGE: 62 ADM/REG DATE : 02/02/17 MR#: [id number] REPORT SERV DATE: 02/17/17 DICTATED BY: TITUS OWEN DATE: 02/16/17 REPORT STATUS : Draft TRANSCRIBED BY: MODL DATE: 02/16/17 ADMISSION DATE: 02/02/2017 DISCHARGE DATE: 02/16/2017 DISCHARGE DIAGNOSES: 1. Methicillin-sensitive Staphylococcus aureus sepsis. 2. Epidural abscess, status post incision and drainage. 3. [place] syndrome, resolved. 4. Acute kidney injury, resolved. 5. Diabetes. 6. Hypertension. 7. Obstructive sleep apnea. CONSULTANTS: 1. Dr. Pereira of Orthopedic Surgery. 2. Cardiology, who saw the patient for CRYSTAL. 3. Gastroenterology, who saw the patient for [place] syndrome. 4. Infectious Disease for the epidural abscess and MSSA sepsis. HOSPITAL COURSE: Please note that this is an addendum to an excellent interim discharge summary dictated by Dr. Tanner. The patient has the above diagnoses and he has been in the CCU until he was transferred out to [address] [place] [address] on 02/14/2017. I assumed care of this patient for the last two days of his hospital stay. By the time I assumed care, the patient was basically ready for discharge and was awaiting insurance authorization for a transfer [facility]. The patient did continue to have low-grade fevers, however, his repeat cultures have been negative, and the patient was otherwise being stable on IV Ancef with repeat cultures being negative. Also, the patient has continued to be followed by Dr. Ornelas of Infectious Disease. The patient had ERIKA drain that was draining minimal amount of fluids and that was discontinued on the day of discharge, ordered by Spine Surgery. The patient is now being discharged to [facility] to continue inpatient rehab and to continue antibiotic therapy for six weeks from surgery. The patient's other issues including Agustin syndrome, acute kidney injury, were all resolved by the time of my encounter with the patient and the patient was tolerating normal diet with normal renal function. Otherwise, there is nothing more to add to Dr. Tanner's interim discharge summary. DISPOSITION: To [facility]. MEDICATIONS: Please see med recon. FOLLOWUP: 1. Please follow up with PCP in the next one to two weeks. 2. Please follow up with Infectious Disease as instructed. 3. Please follow up with Dr. Pereira as instructed. A total of 45 minutes spent in coordinating this patient's discharge today. Discharge Summary [address] [address] NAME: EDDIE COX : 59 STATUS : DIS IN PAT#: [id number] AGE: 62 ADM/REG DATE : 02/02/17 MR#: [id number] REPORT SERV DATE: 02/17/17 DICTATED BY: TITUS OWEN DATE: 02/16/17 REPORT STATUS : Draft TRANSCRIBED BY: PING DATE: 02/16/17 [facility] Titus Owen MD / [id number] CC: MD Eddie Cruz M.D.
[2017-02-01] MEDS ORDERED: MOBIC7.5 PO (20:55)
[2017-02-01] MEDS ORDERED: LIDODERM TOP (20:55)
[2017-02-01] MEDS ORDERED: NORCO1 TA1 PO (20:57)
[2017-02-01] MEDS ORDERED: GLUCOPHXR PO (20:57)
[2017-02-01] MEDS ORDERED: FLEX PO (20:58)
[2017-02-01] MEDS ORDERED: Z300 PO (20:59)
[2017-02-01] MEDS ORDERED: HALF81 PO (20:59)
[2017-02-01] MEDS ORDERED: PRIN20 PO (21:00)
[2017-02-01] MEDS ORDERED: LIPITOR (21:02)
[2017-02-01 21:37] LABS: BASOPHILS 0.1 %; BASOPHILS ABSOLUTE 0.01 10/3/uL (0.0-0.16); EOSINOPHILS 0 %; HEMOGLOBIN 14.7 g/dL (13.6-17.8); IMMATURE GRANULOCYTES 0.7 %; IMMATURE GRANULOCYTES ABSOLUTE 0.12 10/3/uL (0.0-0.11); LYMPHOCYTES 3.6 %; LYMPHOCYTES ABSOLUTE 0.66 10/3/uL (0.67-4.30); MEAN CORPUS HGB CONC 34.3 g/dL (32.0-36.0); MEAN CORPUSCULAR HEMOGLOB 31.8 pg (26.0-34.0); MEAN CORPUSCULAR VOLUME 92.9 fL (80-100); MEAN PLATELET VOLUME 10.8 fL (9.2-13.0); MONOCYTES 9.8 %; MONOCYTES ABSOLUTE 1.77 10/3/uL (0.21-1.20); NEUTROPHILS 85.8 %; NEUTROPHILS ABSOLUTE 15.56 10/3/uL (2.02-8.40); PLATELET COUNT 218 10/3/uL (150-400); RBC DISTRIBUTION WIDTH 14.1 % (12.0-16.0); RED CELL COUNT 4.62 10/6/uL (4.7-6.1)
[2017-02-01 21:39] LABS: ER CBC TAT 0 Hrs 09 Mins; HEMATOCRIT 42.9 % (40.0-51.0); MANUAL DIFF NO %; WHITE BLOOD CELLS 18.1 10/3/uL (4.5-10.5)
[2017-02-01 21:45] LABS: INTERNATIONAL NORMAL RATI 1.2 UNITS (-); PARTIAL THROMBO TIME 32.4 SEC (22.5-37.2)
[2017-02-01 21:49] LABS: PROTIME (NOT ORD) 15.4 SEC (12.0-14.5)
[2017-02-01 21:53] LABS: A/G RATIO 0.7 (0.7-1.9); ALBUMIN 3.2 G/DL (3.5-5.0); ALKALINE PHOSPHATASE 80 U/L (45-117); BUN (BLOOD UREA NITROGEN) 42 MG/DL (6-23); CALCIUM, SERUM 9.1 MG/DL (8.5-10.4); CHLORIDE, SERUM 97 MMOL/L (96-112); CO2 (CARBON DIOXIDE) 29 MMOL/L (24-34); GFR AFRICAN AMERICAN 39 ML/MIN (>=60); GFR NON AFRICAN AMERICAN 33 ML/MIN (>=60); GLOBULIN 4.7 G/DL (2.5-4.1); GLUCOSE, SERUM 148 MG/DL (60-99); POTASSIUM, SERUM 4.1 MMOL/L (3.5-5.3); SGOT(AST) 37 U/L (5-40); SGPT(ALT) 39 U/L (5-65); SODIUM, SERUM 137 MMOL/L (135-148); TOTAL BILIRUBIN 1.9 MG/DL (0-1.2); TOTAL PROTEIN 7.9 G/DL (6.0-8.5)
[2017-02-01 21:57] LABS: LACTATE 3.3 MMOL/L (0.3-2.4)
[2017-02-01 22:23] LABS: PROCALCITONIN 6.74 ng/mL (<0.5)
[2017-02-01 23:37] LABS: ASCORBIC ACID (UR NOT ORDER) NEG (NEG); BILIRUBIN, URINE NEGATIVE (NEG); ER URINALYSIS TAT 0 Hrs 00 Mins; KETONE, URINE NEGATIVE (NEG); LEUKOCYTE ESTERASE(NOT OR NEG (NEG); NITRITE (URINE) NEG (NEG); WBC (NOT ORDERED) (RFLEX) 1 (0-5)
[2017-02-01 23:39] LABS: INFLUENZA A SCREEN NEGATIVE (NEGATIVE); INFLUENZA B SCREEN NEGATIVE (NEGATIVE)
[2017-02-02 06:18] LABS: BASOPHILS 0.1 %; BASOPHILS ABSOLUTE 0.01 10/3/uL (0.0-0.16); EOSINOPHILS 0 %; HEMOGLOBIN 12.8 g/dL (13.6-17.8); IMMATURE GRANULOCYTES 0.6 %; IMMATURE GRANULOCYTES ABSOLUTE 0.07 10/3/uL (0.0-0.11); LYMPHOCYTES 4.3 %; LYMPHOCYTES ABSOLUTE 0.52 10/3/uL (0.67-4.30); MEAN CORPUS HGB CONC 33.6 g/dL (32.0-36.0); MEAN CORPUSCULAR HEMOGLOB 31.1 pg (26.0-34.0); MEAN CORPUSCULAR VOLUME 92.5 fL (80-100); MONOCYTES 10.5 %; MONOCYTES ABSOLUTE 1.29 10/3/uL (0.21-1.20); NEUTROPHILS 84.5 %; NEUTROPHILS ABSOLUTE 10.34 10/3/uL (2.02-8.40); PLATELET COUNT 171 10/3/uL (150-400); RED CELL COUNT 4.12 10/6/uL (4.7-6.1); WHITE BLOOD CELLS 12.2 10/3/uL (4.5-10.5)
[2017-02-02 06:19] LABS: HEMATOCRIT 38.1 % (40.0-51.0); MANUAL DIFF NO %
[2017-02-02 06:21] LABS: INTERNATIONAL NORMAL RATI 1.3 UNITS (-); PARTIAL THROMBO TIME 34.8 SEC (22.5-37.2); PROTIME (NOT ORD) 16.3 SEC (12.0-14.5)
[2017-02-02 06:34] LABS: LACTATE 2.1 MMOL/L (0.3-2.4)
[2017-02-02 06:39] LABS: A/G RATIO 0.6 (0.7-1.9); ALBUMIN 2.4 G/DL (3.5-5.0); ALKALINE PHOSPHATASE 70 U/L (45-117); BUN (BLOOD UREA NITROGEN) 40 MG/DL (6-23); CHLORIDE, SERUM 105 MMOL/L (96-112); CO2 (CARBON DIOXIDE) 25 MMOL/L (24-34); GFR AFRICAN AMERICAN 54 ML/MIN (>=60); GFR NON AFRICAN AMERICAN 46 ML/MIN (>=60); GLOBULIN 4.1 G/DL (2.5-4.1); GLUCOSE, SERUM 188 MG/DL (60-99); POTASSIUM, SERUM 4.1 MMOL/L (3.5-5.3); SGOT(AST) 29 U/L (5-40); SGPT(ALT) 32 U/L (5-65); SODIUM, SERUM 140 MMOL/L (135-148); TOTAL BILIRUBIN 1.6 MG/DL (0-1.2); TOTAL PROTEIN 6.5 G/DL (6.0-8.5)
[2017-02-02 06:40] LABS: B NATRIURETIC PEPTIDE (BNP) 329.5 PG/ML (< 100.0)
[2017-02-02 06:41] LABS: TROPONIN I 0.71 NG/ML (<0.05); ULTRASENSITIVE TSH 0.499 MCIU/ML (0.358-3.740)
[2017-02-02 07:27] LABS: PROCALCITONIN 4.27 ng/mL (<0.5)
[2017-02-02 07:51] LABS: GLYCOHEMOGLOBIN (HbA1c) 7.1 % (4.7-6.1)
[2017-02-03 06:34] LABS: A/G RATIO 0.5 (0.7-1.9); ALBUMIN 2.2 G/DL (3.5-5.0); ALKALINE PHOSPHATASE 76 U/L (45-117); BUN (BLOOD UREA NITROGEN) 25 MG/DL (6-23); CALCIUM, SERUM 8.4 MG/DL (8.5-10.4); CHLORIDE, SERUM 106 MMOL/L (96-112); CO2 (CARBON DIOXIDE) 23 MMOL/L (24-34); CREATININE 1.22 MG/DL (0.70-1.30); GFR AFRICAN AMERICAN 75 ML/MIN (>=60); GFR NON AFRICAN AMERICAN 64 ML/MIN (>=60); GLOBULIN 4.6 G/DL (2.5-4.1); GLUCOSE, SERUM 176 MG/DL (60-99); POTASSIUM, SERUM 3.8 MMOL/L (3.5-5.3); SGOT(AST) 27 U/L (5-40); SGPT(ALT) 31 U/L (5-65); SODIUM, SERUM 138 MMOL/L (135-148); TOTAL BILIRUBIN 1.6 MG/DL (0-1.2); TOTAL PROTEIN 6.8 G/DL (6.0-8.5)
[2017-02-03 07:28] LABS: BASOPHILS 0.1 %; BASOPHILS ABSOLUTE 0.01 10/3/uL (0.0-0.16); EOSINOPHILS 0.1 %; EOSINOPHILS ABSOLUTE 0.01 10/3/uL (0.0-0.53); HEMATOCRIT 38.5 % (40.0-51.0); IMMATURE GRANULOCYTES 0.4 %; IMMATURE GRANULOCYTES ABSOLUTE 0.06 10/3/uL (0.0-0.11); LYMPHOCYTES 5.2 %; LYMPHOCYTES ABSOLUTE 0.72 10/3/uL (0.67-4.30); MEAN CORPUS HGB CONC 33.8 g/dL (32.0-36.0); MEAN CORPUSCULAR HEMOGLOB 31.1 pg (26.0-34.0); MEAN CORPUSCULAR VOLUME 92.1 fL (80-100); MEAN PLATELET VOLUME 10.7 fL (9.2-13.0); MONOCYTES 12.9 %; MONOCYTES ABSOLUTE 1.79 10/3/uL (0.21-1.20); NEUTROPHILS 81.3 %; PLATELET COUNT 205 10/3/uL (150-400); RBC DISTRIBUTION WIDTH 14.2 % (12.0-16.0); RED CELL COUNT 4.18 10/6/uL (4.7-6.1); WHITE BLOOD CELLS 13.9 10/3/uL (4.5-10.5)
[2017-02-03 07:29] LABS: MANUAL DIFF NO %
[2017-02-04 04:47] LABS: BASOPHILS 0.2 %; BASOPHILS ABSOLUTE 0.04 10/3/uL (0.0-0.16); EOSINOPHILS 0.3 %; EOSINOPHILS ABSOLUTE 0.06 10/3/uL (0.0-0.53); HEMATOCRIT 36.8 % (40.0-51.0); HEMOGLOBIN 12.4 g/dL (13.6-17.8); IMMATURE GRANULOCYTES 0.8 %; IMMATURE GRANULOCYTES ABSOLUTE 0.14 10/3/uL (0.0-0.11); LYMPHOCYTES 7.9 %; LYMPHOCYTES ABSOLUTE 1.46 10/3/uL (0.67-4.30); MANUAL DIFF NO %; MEAN CORPUS HGB CONC 33.7 g/dL (32.0-36.0); MEAN CORPUSCULAR HEMOGLOB 31.2 pg (26.0-34.0); MEAN CORPUSCULAR VOLUME 92.5 fL (80-100); MEAN PLATELET VOLUME 10.2 fL (9.2-13.0); MONOCYTES 11.5 %; MONOCYTES ABSOLUTE 2.13 10/3/uL (0.21-1.20); NEUTROPHILS 79.3 %; NEUTROPHILS ABSOLUTE 14.67 10/3/uL (2.02-8.40); PLATELET COUNT 198 10/3/uL (150-400); RBC DISTRIBUTION WIDTH 14.3 % (12.0-16.0); RED CELL COUNT 3.98 10/6/uL (4.7-6.1); WHITE BLOOD CELLS 18.5 10/3/uL (4.5-10.5)
[2017-02-04 05:02] LABS: A/G RATIO 0.5 (0.7-1.9); ALKALINE PHOSPHATASE 81 U/L (45-117); BUN (BLOOD UREA NITROGEN) 27 MG/DL (6-23); CALCIUM, SERUM 8.5 MG/DL (8.5-10.4); CHLORIDE, SERUM 111 MMOL/L (96-112); CO2 (CARBON DIOXIDE) 26 MMOL/L (24-34); CREATININE 1.24 MG/DL (0.70-1.30); GFR AFRICAN AMERICAN 73 ML/MIN (>=60); GFR NON AFRICAN AMERICAN 63 ML/MIN (>=60); GLOBULIN 4.4 G/DL (2.5-4.1); GLUCOSE, SERUM 165 MG/DL (60-99); POTASSIUM, SERUM 3.8 MMOL/L (3.5-5.3); SGOT(AST) 21 U/L (5-40); SGPT(ALT) 23 U/L (5-65); SODIUM, SERUM 144 MMOL/L (135-148); TOTAL PROTEIN 6.4 G/DL (6.0-8.5)
[2017-02-04 05:03] LABS: TOTAL BILIRUBIN 1.1 MG/DL (0-1.2)
[2017-02-04 05:46] LABS: PROCALCITONIN 1.99 ng/mL (<0.5)
[2017-02-05 05:37] LABS: HEMATOCRIT 35.8 % (40.0-51.0); MEAN CORPUS HGB CONC 33.5 g/dL (32.0-36.0); MEAN CORPUSCULAR HEMOGLOB 30.9 pg (26.0-34.0); MEAN CORPUSCULAR VOLUME 92.3 fL (80-100); PLATELET COUNT 203 10/3/uL (150-400); RBC DISTRIBUTION WIDTH 14.7 % (12.0-16.0); RED CELL COUNT 3.88 10/6/uL (4.7-6.1); WHITE BLOOD CELLS 17.8 10/3/uL (4.5-10.5)
[2017-02-05 05:40] LABS: MANUAL DIFF YES %
[2017-02-05 05:51] LABS: A/G RATIO 0.4 (0.7-1.9); ALBUMIN 1.9 G/DL (3.5-5.0); ALKALINE PHOSPHATASE 76 U/L (45-117); BUN (BLOOD UREA NITROGEN) 29 MG/DL (6-23); CALCIUM, SERUM 8.6 MG/DL (8.5-10.4); CHLORIDE, SERUM 111 MMOL/L (96-112); CO2 (CARBON DIOXIDE) 28 MMOL/L (24-34); CPK 69 U/L (0-200); CREATININE 1.03 MG/DL (0.70-1.30); GFR AFRICAN AMERICAN 91 ML/MIN (>=60); GFR NON AFRICAN AMERICAN 79 ML/MIN (>=60); GLOBULIN 4.3 G/DL (2.5-4.1); SGOT(AST) 17 U/L (5-40); SGPT(ALT) 19 U/L (5-65); SODIUM, SERUM 144 MMOL/L (135-148); TOTAL BILIRUBIN 0.7 MG/DL (0-1.2); TOTAL PROTEIN 6.2 G/DL (6.0-8.5)
[2017-02-05 05:54] LABS: GLUCOSE, SERUM 129 MG/DL (60-99); TROPONIN I 0.37 NG/ML (<0.05)
[2017-02-05 06:37] LABS: LYMPHOCYTES 9 %; MONOCYTES 9 %; PLATELET ESTIMATE ADQ (ADEQUATE); RBC MORPHOLOGY NORM (NORMAL); SEGMENTED NEUTROPHIL (0) 82 %; TOTAL NUCLEATED CELLS 100
[2017-02-05 16:26] LABS: HBV DNA QUANT LOG10 VALUE Not Detected (NOTDET); HBV DNA QUANT RESULT Not Detected (NOTDET)
[2017-02-06 06:09] LABS: HEMOGLOBIN 11.9 g/dL (13.6-17.8); MANUAL DIFF YES %; MEAN CORPUS HGB CONC 33.1 g/dL (32.0-36.0); MEAN CORPUSCULAR VOLUME 93.8 fL (80-100); MEAN PLATELET VOLUME 10.2 fL (9.2-13.0); NUCLEATED RED BLOOD CELLS 0.1 /100WBC (0-0); PLATELET COUNT 255 10/3/uL (150-400); RBC DISTRIBUTION WIDTH 14.8 % (12.0-16.0); RED CELL COUNT 3.84 10/6/uL (4.7-6.1); WHITE BLOOD CELLS 20.4 10/3/uL (4.5-10.5)
[2017-02-06 06:15] LABS: A/G RATIO 0.4 (0.7-1.9); ALBUMIN 1.9 G/DL (3.5-5.0); ALKALINE PHOSPHATASE 82 U/L (45-117); CALCIUM, SERUM 8.7 MG/DL (8.5-10.4); CHLORIDE, SERUM 107 MMOL/L (96-112); CO2 (CARBON DIOXIDE) 30 MMOL/L (24-34); CREATININE 1.05 MG/DL (0.70-1.30); GFR AFRICAN AMERICAN 89 ML/MIN (>=60); GFR NON AFRICAN AMERICAN 77 ML/MIN (>=60); GLOBULIN 4.8 G/DL (2.5-4.1); GLUCOSE, SERUM 131 MG/DL (60-99); INTERNATIONAL NORMAL RATI 1.4 UNITS (-); PARTIAL THROMBO TIME 30.2 SEC (22.5-37.2); POTASSIUM, SERUM 3.9 MMOL/L (3.5-5.3); PROTIME (NOT ORD) 16.6 SEC (12.0-14.5); SGOT(AST) 20 U/L (5-40); SGPT(ALT) 17 U/L (5-65); SODIUM, SERUM 144 MMOL/L (135-148); TOTAL BILIRUBIN 0.7 MG/DL (0-1.2); TOTAL PROTEIN 6.7 G/DL (6.0-8.5)
[2017-02-06 06:16] LABS: BUN (BLOOD UREA NITROGEN) 25 MG/DL (6-23)
[2017-02-06 07:06] LABS: BAND NEUTROPHILS 14 %; IMMATURE GRANS ABSOLUTE (CALC) 1.84 10/3/uL (0.0-0.11); LYMPHOCYTES 8 %; LYMPHOCYTES ABSOLUTE (CALC) 1.63 10/3/uL (0.67-4.30); METAMYELOCYTES 7 %; MONOCYTES 3 %; MONOCYTES ABSOLUTE (CALC) 0.61 10/3/uL (0.21-1.20); MYELOCYTES 2 %; NEUTROPHILS ABSOLUTE (CALC) 16.32 10/3/uL (2.02-8.40); PLATELET ESTIMATE ADQ (ADEQUATE); RBC MORPHOLOGY NORM (NORMAL); SEGMENTED NEUTROPHIL (0) 66 %; TOTAL NUCLEATED CELLS 100; TOXIC GRANULATION 1+
[2017-02-06 07:44] LABS: PROCALCITONIN 1.02 ng/mL (<0.5)
[2017-02-06 09:20] LABS: TROPONIN I 0.19 NG/ML (<0.05)
[2017-02-07 05:28] LABS: HEMATOCRIT 34.7 % (40.0-51.0); HEMOGLOBIN 11.8 g/dL (13.6-17.8); MEAN CORPUSCULAR HEMOGLOB 31.9 pg (26.0-34.0); MEAN CORPUSCULAR VOLUME 93.8 fL (80-100); MEAN PLATELET VOLUME 9.9 fL (9.2-13.0); PLATELET COUNT 252 10/3/uL (150-400); RBC DISTRIBUTION WIDTH 14.4 % (12.0-16.0); WHITE BLOOD CELLS 18.6 10/3/uL (4.5-10.5)
[2017-02-07 05:31] LABS: MANUAL DIFF YES %
[2017-02-07 05:37] LABS: INTERNATIONAL NORMAL RATI 1.4 UNITS (-); PROTIME (NOT ORD) 16.8 SEC (12.0-14.5)
[2017-02-07 05:44] LABS: A/G RATIO 0.4 (0.7-1.9); ALBUMIN 1.8 G/DL (3.5-5.0); ALKALINE PHOSPHATASE 74 U/L (45-117); BUN (BLOOD UREA NITROGEN) 24 MG/DL (6-23); CALCIUM, SERUM 8.6 MG/DL (8.5-10.4); CHLORIDE, SERUM 107 MMOL/L (96-112); CO2 (CARBON DIOXIDE) 31 MMOL/L (24-34); CREATININE 0.98 MG/DL (0.70-1.30); GFR AFRICAN AMERICAN 97 ML/MIN (>=60); GFR NON AFRICAN AMERICAN 83 ML/MIN (>=60); GLOBULIN 4.6 G/DL (2.5-4.1); GLUCOSE, SERUM 136 MG/DL (60-99); POTASSIUM, SERUM 3.6 MMOL/L (3.5-5.3); SGOT(AST) 23 U/L (5-40); SGPT(ALT) 17 U/L (5-65); SODIUM, SERUM 145 MMOL/L (135-148); TOTAL BILIRUBIN 0.6 MG/DL (0-1.2); TOTAL PROTEIN 6.4 G/DL (6.0-8.5)
[2017-02-07 05:59] LABS: BAND NEUTROPHILS 4 %; EOSINOPHILS 1 %; EOSINOPHILS ABSOLUTE (CALC) 0.19 10/3/uL (0.0-0.53); IMMATURE GRANS ABSOLUTE (CALC) 0.19 10/3/uL (0.0-0.11); LYMPHOCYTES 8 %; LYMPHOCYTES ABSOLUTE (CALC) 1.49 10/3/uL (0.67-4.30); METAMYELOCYTES 1 %; MONOCYTES 6 %; MONOCYTES ABSOLUTE (CALC) 1.12 10/3/uL (0.21-1.20); NEUTROPHILS ABSOLUTE (CALC) 15.62 10/3/uL (2.02-8.40); PLATELET ESTIMATE ADQ (ADEQUATE); RBC MORPHOLOGY NORM (NORMAL); SEGMENTED NEUTROPHIL (0) 80 %; TOTAL NUCLEATED CELLS 100
[2017-02-07 13:23] LABS: BE (BASE EXCESS) 3.7 MEQ/L (0 +/- 2.5); CARBOXYHEMOGLOBIN 0.7 % (0-3); DEVICE SM; HCO3 (ACTUAL BICARBONATE) 29.6 MEQ/L (23-27); HEMOBLOGIN CONTENT 13.6 G/DL (14-18); INSTRUMENT SERIAL # 11843; METHEMOGLOBIN 0.4 % (0-3); O2 CONTENT 17.7 VOL% (18-24); OPERATOR ID 32214; PCO2 (CO2 TENSION) 50 MMHG (35-45); PO2 (O2 TENSION) 74 MMHG (79-93); SAMPLE Arterial; pH 7.39 (7.37-7.43)
[2017-02-08 04:05] LABS: BASOPHILS 0.2 %; BASOPHILS ABSOLUTE 0.03 10/3/uL (0.0-0.16); EOSINOPHILS 0.6 %; EOSINOPHILS ABSOLUTE 0.11 10/3/uL (0.0-0.53); HEMATOCRIT 33.2 % (40.0-51.0); HEMOGLOBIN 10.9 g/dL (13.6-17.8); IMMATURE GRANULOCYTES 1.6 %; LYMPHOCYTES 6.6 %; LYMPHOCYTES ABSOLUTE 1.26 10/3/uL (0.67-4.30); MANUAL DIFF NO %; MEAN CORPUS HGB CONC 32.8 g/dL (32.0-36.0); MEAN CORPUSCULAR HEMOGLOB 30.9 pg (26.0-34.0); MEAN CORPUSCULAR VOLUME 94.1 fL (80-100); MEAN PLATELET VOLUME 9.7 fL (9.2-13.0); MONOCYTES 7.5 %; MONOCYTES ABSOLUTE 1.42 10/3/uL (0.21-1.20); NEUTROPHILS 83.5 %; NEUTROPHILS ABSOLUTE 15.88 10/3/uL (2.02-8.40); PLATELET COUNT 259 10/3/uL (150-400); RBC DISTRIBUTION WIDTH 14.6 % (12.0-16.0); RED CELL COUNT 3.53 10/6/uL (4.7-6.1)
[2017-02-08 04:29] LABS: A/G RATIO 0.4 (0.7-1.9); ALBUMIN 1.7 G/DL (3.5-5.0); ALKALINE PHOSPHATASE 71 U/L (45-117); BUN (BLOOD UREA NITROGEN) 23 MG/DL (6-23); CALCIUM, SERUM 8.2 MG/DL (8.5-10.4); CHLORIDE, SERUM 103 MMOL/L (96-112); CO2 (CARBON DIOXIDE) 35 MMOL/L (24-34); CREATININE 0.99 MG/DL (0.70-1.30); GFR AFRICAN AMERICAN 96 ML/MIN (>=60); GFR NON AFRICAN AMERICAN 82 ML/MIN (>=60); GLOBULIN 4.4 G/DL (2.5-4.1); PHOSPHORUS, SERUM 3.2 MG/DL (2.5-4.5); POTASSIUM, SERUM 3.7 MMOL/L (3.5-5.3); SGOT(AST) 24 U/L (5-40); SGPT(ALT) 17 U/L (5-65); SODIUM, SERUM 142 MMOL/L (135-148); TOTAL BILIRUBIN 0.5 MG/DL (0-1.2); TOTAL PROTEIN 6.1 G/DL (6.0-8.5); ULTRASENSITIVE TSH 0.406 MCIU/ML (0.358-3.740)
[2017-02-08 04:30] LABS: GLUCOSE, SERUM 174 MG/DL (60-99)
[2017-02-09 05:20] LABS: BASOPHILS 0.2 %; BASOPHILS ABSOLUTE 0.03 10/3/uL (0.0-0.16); EOSINOPHILS 1.2 %; EOSINOPHILS ABSOLUTE 0.22 10/3/uL (0.0-0.53); HEMATOCRIT 33.7 % (40.0-51.0); HEMOGLOBIN 11.1 g/dL (13.6-17.8); IMMATURE GRANULOCYTES 1.5 %; IMMATURE GRANULOCYTES ABSOLUTE 0.27 10/3/uL (0.0-0.11); LYMPHOCYTES 6.1 %; LYMPHOCYTES ABSOLUTE 1.08 10/3/uL (0.67-4.30); MEAN CORPUS HGB CONC 32.9 g/dL (32.0-36.0); MEAN CORPUSCULAR HEMOGLOB 31.1 pg (26.0-34.0); MEAN CORPUSCULAR VOLUME 94.4 fL (80-100); MEAN PLATELET VOLUME 9.8 fL (9.2-13.0); MONOCYTES 7.5 %; MONOCYTES ABSOLUTE 1.33 10/3/uL (0.21-1.20); NEUTROPHILS 83.5 %; NEUTROPHILS ABSOLUTE 14.74 10/3/uL (2.02-8.40); PLATELET COUNT 321 10/3/uL (150-400); RBC DISTRIBUTION WIDTH 14.4 % (12.0-16.0); RED CELL COUNT 3.57 10/6/uL (4.7-6.1); WHITE BLOOD CELLS 17.7 10/3/uL (4.5-10.5)
[2017-02-09 05:21] LABS: MANUAL DIFF NO %
[2017-02-09 07:19] LABS: BUN (BLOOD UREA NITROGEN) 22 MG/DL (6-23); CALCIUM, SERUM 8.2 MG/DL (8.5-10.4); CHLORIDE, SERUM 100 MMOL/L (96-112); CO2 (CARBON DIOXIDE) 38 MMOL/L (24-34); GFR AFRICAN AMERICAN 113 ML/MIN (>=60); GFR NON AFRICAN AMERICAN 97 ML/MIN (>=60); PHOSPHORUS, SERUM 2.3 MG/DL (2.5-4.5); POTASSIUM, SERUM 3.6 MMOL/L (3.5-5.3); SODIUM, SERUM 141 MMOL/L (135-148)
[2017-02-09 07:20] LABS: GLUCOSE, SERUM 114 MG/DL (60-99)
[2017-02-10 04:58] LABS: BASOPHILS 0.1 %; BASOPHILS ABSOLUTE 0.02 10/3/uL (0.0-0.16); EOSINOPHILS 0.5 %; EOSINOPHILS ABSOLUTE 0.09 10/3/uL (0.0-0.53); HEMATOCRIT 34.4 % (40.0-51.0); HEMOGLOBIN 11.5 g/dL (13.6-17.8); IMMATURE GRANULOCYTES 1.1 %; LYMPHOCYTES 7.7 %; LYMPHOCYTES ABSOLUTE 1.34 10/3/uL (0.67-4.30); MEAN CORPUS HGB CONC 33.4 g/dL (32.0-36.0); MEAN CORPUSCULAR VOLUME 92.7 fL (80-100); MEAN PLATELET VOLUME 9.8 fL (9.2-13.0); MONOCYTES 7.5 %; NEUTROPHILS 83.1 %; NEUTROPHILS ABSOLUTE 14.47 10/3/uL (2.02-8.40); PLATELET COUNT 339 10/3/uL (150-400); RBC DISTRIBUTION WIDTH 13.9 % (12.0-16.0); RED CELL COUNT 3.71 10/6/uL (4.7-6.1); WHITE BLOOD CELLS 17.4 10/3/uL (4.5-10.5)
[2017-02-10 04:59] LABS: MANUAL DIFF NO %
[2017-02-10 05:14] LABS: BUN (BLOOD UREA NITROGEN) 23 MG/DL (6-23); CALCIUM, SERUM 8.1 MG/DL (8.5-10.4); CHLORIDE, SERUM 99 MMOL/L (96-112); CO2 (CARBON DIOXIDE) 35 MMOL/L (24-34); CREATININE 0.77 MG/DL (0.70-1.30); GFR AFRICAN AMERICAN 114 ML/MIN (>=60); GFR NON AFRICAN AMERICAN 99 ML/MIN (>=60); GLUCOSE, SERUM 106 MG/DL (60-99); PHOSPHORUS, SERUM 2.6 MG/DL (2.5-4.5); POTASSIUM, SERUM 3.6 MMOL/L (3.5-5.3); SODIUM, SERUM 142 MMOL/L (135-148)
[2017-02-12 04:27] LABS: BASOPHILS 0.2 %; BASOPHILS ABSOLUTE 0.02 10/3/uL (0.0-0.16); EOSINOPHILS 1.8 %; EOSINOPHILS ABSOLUTE 0.24 10/3/uL (0.0-0.53); HEMATOCRIT 36.4 % (40.0-51.0); HEMOGLOBIN 11.6 g/dL (13.6-17.8); IMMATURE GRANULOCYTES 0.8 %; IMMATURE GRANULOCYTES ABSOLUTE 0.11 10/3/uL (0.0-0.11); LYMPHOCYTES 13.2 %; LYMPHOCYTES ABSOLUTE 1.75 10/3/uL (0.67-4.30); MEAN CORPUS HGB CONC 31.9 g/dL (32.0-36.0); MEAN CORPUSCULAR HEMOGLOB 30.7 pg (26.0-34.0); MEAN PLATELET VOLUME 9.7 fL (9.2-13.0); MONOCYTES 11.5 %; MONOCYTES ABSOLUTE 1.53 10/3/uL (0.21-1.20); NEUTROPHILS 72.5 %; NEUTROPHILS ABSOLUTE 9.61 10/3/uL (2.02-8.40); PLATELET COUNT 406 10/3/uL (150-400); RBC DISTRIBUTION WIDTH 14.3 % (12.0-16.0); RED CELL COUNT 3.78 10/6/uL (4.7-6.1); WHITE BLOOD CELLS 13.3 10/3/uL (4.5-10.5)
[2017-02-12 04:40] LABS: MANUAL DIFF NO %; MEAN CORPUSCULAR VOLUME 96.3 fL (80-100)
[2017-02-12 10:09] LABS: ALBUMIN 1.8 G/DL (3.5-5.0); CHLORIDE, SERUM 103 MMOL/L (96-112); CO2 (CARBON DIOXIDE) 34 MMOL/L (24-34); CREATININE 0.81 MG/DL (0.70-1.30); GFR AFRICAN AMERICAN 112 ML/MIN (>=60); GFR NON AFRICAN AMERICAN 97 ML/MIN (>=60); GLUCOSE, SERUM 117 MG/DL (60-99); PHOSPHORUS, SERUM 3.1 MG/DL (2.5-4.5); POTASSIUM, SERUM 3.9 MMOL/L (3.5-5.3); SODIUM, SERUM 141 MMOL/L (135-148)
[2017-02-12 10:10] LABS: BUN (BLOOD UREA NITROGEN) 19 MG/DL (6-23)
[2017-02-13 05:02] LABS: BASOPHILS 0.2 %; BASOPHILS ABSOLUTE 0.03 10/3/uL (0.0-0.16); EOSINOPHILS 1.9 %; EOSINOPHILS ABSOLUTE 0.27 10/3/uL (0.0-0.53); HEMATOCRIT 35.5 % (40.0-51.0); HEMOGLOBIN 11.4 g/dL (13.6-17.8); IMMATURE GRANULOCYTES 0.6 %; IMMATURE GRANULOCYTES ABSOLUTE 0.08 10/3/uL (0.0-0.11); LYMPHOCYTES 15.2 %; LYMPHOCYTES ABSOLUTE 2.11 10/3/uL (0.67-4.30); MEAN CORPUS HGB CONC 32.1 g/dL (32.0-36.0); MEAN CORPUSCULAR VOLUME 96.5 fL (80-100); MEAN PLATELET VOLUME 9.5 fL (9.2-13.0); MONOCYTES 10.8 %; NEUTROPHILS 71.3 %; NEUTROPHILS ABSOLUTE 9.87 10/3/uL (2.02-8.40); PLATELET COUNT 410 10/3/uL (150-400); RBC DISTRIBUTION WIDTH 14.1 % (12.0-16.0); RED CELL COUNT 3.68 10/6/uL (4.7-6.1); WHITE BLOOD CELLS 13.9 10/3/uL (4.5-10.5)
[2017-02-13 05:12] LABS: MANUAL DIFF NO %
[2017-02-13 05:20] LABS: A/G RATIO 0.4 (0.7-1.9); ALBUMIN 1.9 G/DL (3.5-5.0); ALKALINE PHOSPHATASE 60 U/L (45-117); CALCIUM, SERUM 8.1 MG/DL (8.5-10.4); CHLORIDE, SERUM 102 MMOL/L (96-112); CO2 (CARBON DIOXIDE) 34 MMOL/L (24-34); CREATININE 0.84 MG/DL (0.70-1.30); GFR AFRICAN AMERICAN 110 ML/MIN (>=60); GFR NON AFRICAN AMERICAN 95 ML/MIN (>=60); GLOBULIN 4.6 G/DL (2.5-4.1); GLUCOSE, SERUM 102 MG/DL (60-99); PHOSPHORUS, SERUM 3.3 MG/DL (2.5-4.5); SGOT(AST) 25 U/L (5-40); SGPT(ALT) 22 U/L (5-65); SODIUM, SERUM 140 MMOL/L (135-148); TOTAL PROTEIN 6.5 G/DL (6.0-8.5)
[2017-02-13 05:27] LABS: BUN (BLOOD UREA NITROGEN) 15 MG/DL (6-23); TOTAL BILIRUBIN 1.4 MG/DL (0-1.2)
[2017-02-13 10:56] LABS: ASCORBIC ACID (UR NOT ORDER) NEG (NEG); BILIRUBIN, URINE NEGATIVE (NEG); KETONE, URINE NEGATIVE (NEG); LEUKOCYTE ESTERASE(NOT OR NEG (NEG); WBC (NOT ORDERED) (RFLEX) 3 (0-5)
[2017-02-14 05:25] LABS: HEMATOCRIT 34.5 % (40.0-51.0); HEMOGLOBIN 11.3 g/dL (13.6-17.8); MEAN CORPUS HGB CONC 32.8 g/dL (32.0-36.0); MEAN CORPUSCULAR HEMOGLOB 31.2 pg (26.0-34.0); MEAN CORPUSCULAR VOLUME 95.3 fL (80-100); MEAN PLATELET VOLUME 9.7 fL (9.2-13.0); PLATELET COUNT 407 10/3/uL (150-400); RBC DISTRIBUTION WIDTH 14.2 % (12.0-16.0); RED CELL COUNT 3.62 10/6/uL (4.7-6.1); WHITE BLOOD CELLS 14.9 10/3/uL (4.5-10.5)
[2017-02-14 05:28] LABS: MANUAL DIFF YES %
[2017-02-14 05:47] LABS: BUN (BLOOD UREA NITROGEN) 16 MG/DL (6-23); CALCIUM, SERUM 8.4 MG/DL (8.5-10.4); CHLORIDE, SERUM 103 MMOL/L (96-112); CREATININE 0.97 MG/DL (0.70-1.30); GFR AFRICAN AMERICAN 98 ML/MIN (>=60); GFR NON AFRICAN AMERICAN 85 ML/MIN (>=60); GLUCOSE, SERUM 120 MG/DL (60-99); POTASSIUM, SERUM 4.1 MMOL/L (3.5-5.3); SODIUM, SERUM 138 MMOL/L (135-148)
[2017-02-14 05:50] LABS: CO2 (CARBON DIOXIDE) 28 MMOL/L (24-34)
[2017-02-14 06:18] LABS: BAND NEUTROPHILS 2 %; EOSINOPHILS 2 %; IMMATURE GRANS ABSOLUTE (CALC) 0.15 10/3/uL (0.0-0.11); LYMPHOCYTES 9 %; LYMPHOCYTES ABSOLUTE (CALC) 1.34 10/3/uL (0.67-4.30); METAMYELOCYTES 1 %; MONOCYTES 2 %; NEUTROPHILS ABSOLUTE (CALC) 12.81 10/3/uL (2.02-8.40); SEGMENTED NEUTROPHIL (0) 84 %; TOTAL NUCLEATED CELLS 100
[2017-02-14 06:19] LABS: PLATELET ESTIMATE ADQ (ADEQUATE)
[2017-02-14 06:20] LABS: RBC MORPHOLOGY NORM (NORMAL)
[2017-02-15 05:48] LABS: BASOPHILS 0.3 %; BASOPHILS ABSOLUTE 0.04 10/3/uL (0.0-0.16); EOSINOPHILS 2.8 %; EOSINOPHILS ABSOLUTE 0.36 10/3/uL (0.0-0.53); HEMATOCRIT 34.1 % (40.0-51.0); HEMOGLOBIN 11.3 g/dL (13.6-17.8); IMMATURE GRANULOCYTES 0.6 %; IMMATURE GRANULOCYTES ABSOLUTE 0.08 10/3/uL (0.0-0.11); LYMPHOCYTES 16.6 %; LYMPHOCYTES ABSOLUTE 2.14 10/3/uL (0.67-4.30); MEAN CORPUS HGB CONC 33.1 g/dL (32.0-36.0); MEAN CORPUSCULAR HEMOGLOB 31.4 pg (26.0-34.0); MEAN CORPUSCULAR VOLUME 94.7 fL (80-100); MEAN PLATELET VOLUME 9.6 fL (9.2-13.0); MONOCYTES 13.2 %; MONOCYTES ABSOLUTE 1.71 10/3/uL (0.21-1.20); NEUTROPHILS 66.5 %; NEUTROPHILS ABSOLUTE 8.59 10/3/uL (2.02-8.40); PLATELET COUNT 410 10/3/uL (150-400); RBC DISTRIBUTION WIDTH 13.6 % (12.0-16.0); WHITE BLOOD CELLS 12.9 10/3/uL (4.5-10.5)
[2017-02-15 06:01] LABS: MANUAL DIFF NO %
[2017-02-15 06:05] LABS: BUN (BLOOD UREA NITROGEN) 14 MG/DL (6-23); CALCIUM, SERUM 8.5 MG/DL (8.5-10.4); CHLORIDE, SERUM 102 MMOL/L (96-112); CO2 (CARBON DIOXIDE) 27 MMOL/L (24-34); CREATININE 0.87 MG/DL (0.70-1.30); GFR AFRICAN AMERICAN 109 ML/MIN (>=60); GFR NON AFRICAN AMERICAN 94 ML/MIN (>=60); GLUCOSE, SERUM 97 MG/DL (60-99); SODIUM, SERUM 138 MMOL/L (135-148)
[2017-02-16 04:48] LABS: BASOPHILS 0.1 %; BASOPHILS ABSOLUTE 0.01 10/3/uL (0.0-0.16); EOSINOPHILS 2.4 %; EOSINOPHILS ABSOLUTE 0.26 10/3/uL (0.0-0.53); HEMATOCRIT 33.4 % (40.0-51.0); HEMOGLOBIN 10.9 g/dL (13.6-17.8); IMMATURE GRANULOCYTES 0.7 %; IMMATURE GRANULOCYTES ABSOLUTE 0.07 10/3/uL (0.0-0.11); LYMPHOCYTES ABSOLUTE 1.72 10/3/uL (0.67-4.30); MEAN CORPUS HGB CONC 32.6 g/dL (32.0-36.0); MEAN CORPUSCULAR HEMOGLOB 30.6 pg (26.0-34.0); MEAN CORPUSCULAR VOLUME 93.8 fL (80-100); MEAN PLATELET VOLUME 9.8 fL (9.2-13.0); MONOCYTES 13.9 %; MONOCYTES ABSOLUTE 1.49 10/3/uL (0.21-1.20); NEUTROPHILS 66.9 %; NEUTROPHILS ABSOLUTE 7.17 10/3/uL (2.02-8.40); PLATELET COUNT 417 10/3/uL (150-400); RBC DISTRIBUTION WIDTH 13.8 % (12.0-16.0); RED CELL COUNT 3.56 10/6/uL (4.7-6.1); WHITE BLOOD CELLS 10.7 10/3/uL (4.5-10.5)
[2017-02-16 04:56] LABS: MANUAL DIFF NO %
[2017-02-16 05:14] LABS: BUN (BLOOD UREA NITROGEN) 16 MG/DL (6-23); CALCIUM, SERUM 8.6 MG/DL (8.5-10.4); CHLORIDE, SERUM 101 MMOL/L (96-112); CO2 (CARBON DIOXIDE) 30 MMOL/L (24-34); CREATININE 0.85 MG/DL (0.70-1.30); GFR AFRICAN AMERICAN 110 ML/MIN (>=60); GFR NON AFRICAN AMERICAN 95 ML/MIN (>=60); GLUCOSE, SERUM 114 MG/DL (60-99); POTASSIUM, SERUM 4.2 MMOL/L (3.5-5.3); SODIUM, SERUM 138 MMOL/L (135-148)
== END 2017-02-16 17:26 | DRG 853 ==
LOC: ER 20:50 → 2SO 02-02 00:22 → MIC 02-07 15:12 → 6NO 02-13 14:40
PROVIDERS: Internal Medicine; Internal Medicine Critical Care Medicine; Internal Medicine Infectious Disease; Nurse Practitioner; Orthopaedic Surgery; Specialist
PROC: 0JB70ZZ Excision of Back Subcutaneous Tissue and Fascia, Open Approach (ICD-10-PCS; principal; 2017-02-07 08:45)
PROC: 01NB0ZZ Release Lumbar Nerve, Open Approach (ICD-10-PCS; 2017-02-07 08:45)
PROC: 3E1038Z Irrigation of Skin and Mucous Membranes using Irrigating Substance, Percutaneous Approach (ICD-10-PCS; 2017-02-10)
PROC: 0W9L00Z Drainage of Lower Back with Drainage Device, Open Approach (ICD-10-PCS; 2017-02-10)
PROC: B246ZZ4 Ultrasonography of Right and Left Heart, Transesophageal (ICD-10-PCS; 2017-02-12)
DX: A41.01 Sepsis due to Methicillin susceptible Staphylococcus aureus (principal); R65.21 Severe sepsis with septic shock; G06.2 Extradural and subdural abscess, unspecified; N17.9 Acute kidney failure, unspecified; I24.8 Other forms of acute ischemic heart disease; K56.7 Ileus, unspecified; B19.10 Unspecified viral hepatitis B without hepatic coma; K59.8 Other specified functional intestinal disorders; N20.0 Calculus of kidney; I25.10 Atherosclerotic heart disease of native coronary artery without angina pectoris; M43.16 Spondylolisthesis, lumbar region; G47.33 Obstructive sleep apnea (adult) (pediatric); E11.9 Type 2 diabetes mellitus without complications; M54.16 Radiculopathy, lumbar region; K59.00 Constipation, unspecified; E86.0 Dehydration; I10 Essential (primary) hypertension; Z79.82 Long term (current) use of aspirin; Z79.84 Long term (current) use of oral hypoglycemic drugs; Z79.891 Long term (current) use of opiate analgesic; Z79.899 Other long term (current) drug therapy; Z85.46 Personal history of malignant neoplasm of prostate; Z90.79 Acquired absence of other genital organ(s); Z87.442 Personal history of urinary calculi
CPT/HCPCS: 36569; 71010; 72148; 72158; 72195; 72197; 73721-RT; 74000; 74020; 74176; 74270; 80048; 80053; 80069; 80202; 81001; 82550; 82585; 82805; 82962; 83036; 83605; 83735; 83880; 84100; 84145; 84443; 84484; 85025; 85610; 85730; 87015; 87040; 87070; 87075; 87077; 87102; 87116; 87150; 87186; 87205; 87493; 87493-59; 87517; 87641; 87804; 88304; 88311; 93005; 93312; 93320; 93325; 93970; 94660; 96365; 96367; 96372; 97110-GO; 97110-GP; 97116-GP; 97162-GP; 97164-GP; 97166-GO; 97530-GP; 97535-GO; 99283; 99291; A9270-GY; A9577; C1751; C1769; C8924; C9113; J0360; J0456; J0690; J0692; J1030; J1120; J1170; J1885; J2250; J2270; J2405; J2543; J2710; J2765; J3010; J3370; J3475; Q9957